=== PATIENT | female | born 1975 | race Two or more races ===

== ENCOUNTER 2018-06-02 22:32 | Observation (INO) | payer OTHER ==
--- NOTE | 2018-06-02 23:36 | EDPHY ---
H & P Stated Complaint: mid chest pain with rib and back pain for 2 week Time Seen by Provider: 06/02/18 23:36 HPI/ROS: HPI CHIEF COMPLAINT: Chest pain and abdominal pain. HISTORY OF PRESENT ILLNESS: This patient is a 42-year-old female, predominantly Finnish-speaking, however daughter at bedside speaks fluent Finnish and Serbian, she presents emergency room chest pain and abdominal pain the chest pain is substernal, abdominal pain epigastric. States she has basically had this for 2 weeks constantly. It has gotten worse tonight. No pleuritic pain. Describes achy sensation. Past Medical History: Significant medical history for hypertension, prediabetes Past Surgical History: No recent surgical history Social History: Denies daily use of drugs alcohol tobacco. Family History: Noncontributory ROS REVIEW OF SYSTEMS: 10 Systems were reviewed and negative with the exception of the elements mentioned in the history of present illness. Exam Constitutional triage nursing summary reviewed, vital signs reviewed, awake/ alert. Eyes normal conjunctivae and sclera, EOMI, PERRLA. HENT normal inspection, atraumatic, moist mucus membranes, no epistaxis, neck supple/ no meningismus, no raccoon eyes. Respiratory clear to auscultation bilaterally, normal breath sounds, no respiratory distress, no wheezing. Cardiovascular rate normal, regular rhythm, no murmur, no edema, distal pulses normal. Gastrointestinal soft, non-tender, no rebound, no guarding, normal bowel sounds, no distension, no pulsatile mass. Genitourinary no CVA tenderness. Musculoskeletal no midline vertebral tenderness, full range of motion, no calf swelling, no tenderness of extremities, no meningismus, good pulses, neurovascularly intact. Skin pink, warm, & dry, no rash, skin atraumatic. Neurologic awake, alert and oriented x 3, AAOx3, moves all 4 extremities equally, motor intact, sensory intact, CN II-XII intact, normal cerebellar, normal vision, normal speech. Psychiatric normal mood/affect. Heme/Lymph/Immune no lymphadenopathy. Differential Diagnosis: Differential diagnosis includes but is not limited to: ACS, atypical chest pain, pneumothorax, pneumonia, pulmonary embolism, aortic dissection, congestive heart failure, tumor, musculoskeletal pain, esophageal pain, GERD, peptic ulcer disease, pancreatitis Medical Decision Making: Plan for this patient IV establishment IV fluid bolus , hall monitor, EKG, troponin, rule out acute coronary syndrome, GI cocktail. Chest x-ray re-evaluate Re-evaluation: EKG interpretation by me on record in [email or web address] system. Impression time of EKG 225, sinus rhythm: 86, no ST-elevation borderline T-wave abnormalities V1 V2. Troponin 0.00 ED x-ray chest one view negative for acute cardiopulmonary disease. Re-evaluation 4:32 a.m.: Patient continues to complain of left-sided chest pain it did go away briefly. Full-dose aspirin given. Will repeat her EKG. 4:41 a.m. patient continues have left-sided chest pain full-dose aspirin as been ordered nitroglycerin as been ordered. Repeat EKG. Plan for admission to the hospitalist service Dr. Lerma agrees to admit. EKG interpretation by me on record in [facility] [employer] [facility] system. Impression time of EKG this is a repeat EKG 4:45 a.m. Sinus rhythm rate of 69, T-wave abnormality V1 V2. Nonspecific. No ST elevation. Source: Patient - Personal History LMP (Females 10-55): Unknown Current Tetanus/Diphtheria Vaccine: Yes Current Tetanus Diphtheria and Acellular Pertussis (TDAP): Yes - Medical/Surgical History Hx Asthma: No Hx Chronic Respiratory Disease: No Hx Diabetes: Yes Hx Cardiac Disease: No Hx Renal Disease: No Hx Cirrhosis: No Hx Alcoholism: No Hx HIV/AIDS: No Hx Splenectomy or Spleen Trauma: No Other PMH: tubal,appy, , DM, and HTN - Social History Smoking Status: Never smoked Constitutional: Initial Vital Signs Temperature (C) 37.0 C 06/02/18 22:34 Heart Rate 91 06/02/18 22:34 Respiratory Rate 16 06/02/18 22:34 Blood Pressure 176/100 H 06/02/18 22:34 O2 Sat (%) 95 06/02/18 22:34 O2 Delivery Mode Room Air Allergies/Adverse Reactions: anesthesia Allergy (Uncoded 06/02/18 22:39) Home Medications: Medication Instructions Recorded Cyclobenzaprine [Flexeril 10 MG 5 - 10 mg PO TID PRN 06/02/18 (*)] Meloxicam 15 mg PO DAILY 06/02/18 Medical Decision Making - Data Points Laboratory Results: Laboratory Results 06/02/18 23:33 06/02/18 23:33 Medications Given: Discontinued Medications Al Hydroxide/Mg Hydroxide (Maalox Susp) 30 ml PO ONCE ONE Stop: 06/02/18 23:42 Last Admin: 06/02/18 23:46 Dose: 30 ml Hyoscyamine Sulfate (Levsin, Hyomax-Sl) 0.25 mg PO ONCE ONE Stop: 06/02/18 23:42 Last Admin: 06/02/18 23:46 Dose: 0.25 mg Sodium Chloride (Ns) 1,000 mls @ 0 mls/hr IV EDNOW ONE; Wide Open PRN Reason: Protocol Stop: 06/02/18 23:42 Last Admin: 06/02/18 23:46 Dose: 1,000 mls Sodium Chloride (Ns) 1,000 mls @ 75 mls/hr IV CONT BLANE Stop: 06/03/18 18:04 Last Admin: 06/03/18 06:29 Dose: 1,000 mls Lidocaine (Lidocaine 2% Viscous) 15 ml PO ONCE ONE Stop: 06/02/18 23:42 Last Admin: 06/02/18 23:46 Dose: 15 ml Nitroglycerin (Nitrostat) 0.4 mg SL EDNOW ONE Stop: 06/03/18 04:41 Last Admin: 06/03/18 04:46 Dose: 0.4 mg Point of Care Test Results: Chemistry 06/02/18 06/02/18 23:41 23:38 POC Sodium 142 mEq/L mEq/L (135-145) POC Potassium 3.3 mEq/L mEq/L (3.3-5.0) POC Chloride 103 mEq/L mEq/L (97-110) POC Total CO2 24 mEq/L mEq/L (22-31) POC BUN 20 mg/dL mg/dL (7-23) POC Creatinine 0.8 mg/dL mg/dL (0.6-1.0) POC Glucose 109 mg/dL H mg/dL (70-100) POC Troponin I 0.00 ng/mL ng/mL (0.00-0.08) ISTAT H&H 06/02/18 23:41 POC Hgb 15.0 gm/dL gm/dL (12.6-16.3) POC Hct 44 % % (38-47) Departure - Departure Disposition: [facility] Inpatient Acute Clinical Impression: Chest pain Qualifiers: Chest pain type: unspecified Qualified Code(s): R07.9 - Chest pain, unspecified Condition: Fair
[2018-06-02] MEDS ORDERED: HYOSCYAMINE SULFATE 0.125 MG TAB PO ONE (23:41)
[2018-06-02] MEDS ORDERED: MAG HYDROX/AL HYDROX/SIMETH 30 ML UDCUP PO ONE (23:41)
[2018-06-02] MEDS ORDERED: LIDOCAINE 2% VISCOUS 15 ML UDCUP PO ONE (23:41)
[2018-06-02] MEDS ORDERED: NS 1,000 ML IV ONE (23:41)
[2018-06-02 23:42] LABS: PLATELET COUNT 195 10^3/uL (150-400)
[2018-06-03 00:04] LABS: INR 0.93 (0.83-1.16); PROTIME(PATIENT) 12.1 SEC (12.0-15.0)
[2018-06-03] MEDS ORDERED: NITROGLYCERIN 0.4 MG BTL SL ONE (04:40)
[2018-06-03] MEDS ORDERED: HYDROCODONE/APAP 5/325 TAB PO PRN (04:41)
[2018-06-03] MEDS ORDERED: ONDANSETRON DISINTEGRATING 4 MG TAB PO PRN (04:41)
[2018-06-03] MEDS ORDERED: LORazepam 2 MG/ML INJ IVP PRN (04:41)
[2018-06-03] MEDS ORDERED: ACETAMINOPHEN 325 MG TAB PO PRN (04:41)
[2018-06-03] MEDS ORDERED: ONDANSETRON 4 MG/2 ML VIAL IVP PRN (04:41)
[2018-06-03] MEDS ORDERED: NS 1,000 ML IV SCH (04:45)
[2018-06-03] MEDS ORDERED: NITROGLYCERIN 0.4 MG BTL SL PRN (04:45)
--- NOTE | 2018-06-03 09:23 | GHP ---
[f rep st] HISTORY AND PHYSICAL DATE OF ADMISSION: 06/03/2018 PRIMARY CARE PHYSICIAN: Unlisted. SOURCE: The patient provides history, appears reliable. I am able to complete majority of the inter view in [place]ian; however, her daughter is at bedside and supplements translation per patient preferen ce. A auto claims adjuster was offered. The patient requested her daughter translate. EMR was reviewed and c alfredo discussed with the ED provider. CHIEF COMPLAINT: Chest pain. HISTORY OF PRESENT ILLNESS: This is a pleasant 42-year-old female with past medical history signific ant for hypertension, prediabetes, who presents to the emergency department with worsening constant c hest pain. Patient's symptoms originally started 2 weeks ago. The patient describes her symptoms as pressure, substernal, without any radiation. She denies any shortness of breath, diaphoresis, no na usea or vomiting associated with it. She denies any pain down her arm, neck or jaw. Patient without any complaints of dyspnea, no lower extremity edema, no PND. No family history of cardiac disease. In the ED, patient was given a GI cocktail as there was concern that this could be GI, related to ref lux. She reports that the GI cocktail did not make any change to her symptoms. She was subsequently given a dose of aspirin and nitroglycerin. The patient reports that her pain steadily improved, and although still present, is much better than when she came into the ER. REVIEW OF SYSTEMS: Ten systems reviewed, negative except as noted above, except for patient now with complaint of a headache following administration nitroglycerin. ALLERGIES: Anesthesia. PAST MEDICAL HISTORY: Significant for hypertension, prediabetes for which the patient is not current ly receiving any medications for. She does have some musculoskeletal issues for which she is on Guan xicam and cyclobenzaprine. PAST SURGICAL HISTORY: Significant for BTL, , appendectomy. FAMILY HISTORY: Negative for CAD. SOCIAL HISTORY: Patient is . She lives with her family. She does not smoke or utilize any i llicit drugs. Occasional alcohol. CODE STATUS: Full. PHYSICAL EXAMINATION: VITAL SIGNS: Upon arrival to the ED, blood pressure is 176/100, heart rate 91 , respiratory rate 16, O2 sat 95% on room air, temperature 37.0. Current vitals available: Blood pr essure 143/93, heart rate 87, respiratory rate 17, O2 sat 97% on room air with a temperature of 36.8. GENERAL: No acute distress, very pleasant, obese female, who is lying quietly in bed, does appear slightly uncomfortable, complaining of headache. Daughter is at bedside. HEAD: Normocephalic/atrau matic. EYES: Extraocular muscles are intact. Pupils are equal, round, slightly decreased reactivit y to light bilaterally, but symmetric. No scleral icterus or conjunctival injection. ENT: Mucous m embranes appear moist. No oropharyngeal erythema or exudate. NECK: Supple, trachea midline. CARDI OVASCULAR: Regular rate and rhythm. No murmurs, rubs or gallops appreciated. RESPIRATORY: Lungs c lear to auscultation bilaterally. No wheezes, rales or rhonchi appreciated. ABDOMEN: Obese, soft, nontender to palpation. No rebound, guarding or masses appreciated. : No supraclavicular tendern ess to palpation. Miller catheter in place. EXTREMITIES: No cyanosis, clubbing or edema appreciated . 2+ pedal pulses bilaterally and symmetric. NEUROLOGIC: Grossly nonfocal. No facial drooping. M oves all extremities. Sits up independently. PSYCH: Patient is pleasant and cooperative. Thought process, content and questions appropriate. LABORATORY STUDIES: WBCs 5.60, H and H 14.8 and 42.5, MCV 81.4, platelet count 195, no bands. Neutr ophil percent normal. PT 12.1, INR 0.93, PTT 26.3. Sodium 136, potassium 3.7, chloride 102, CO2 23, anion gap 11, BUN 20, creatinine 0.8, GFR greater th an 60, glucose 113, calcium 9.4, magnesium 1.8, total bili 0.4, conjugated 0.4, ALT 45, AST 29, alk p hos 64. Troponin x2 is negative. BTNP 39. Total protein 8.2, albumin 4.7, lipase 145. EKG: Normal sinus rhythm in the 80s. Patient with T-wave inversions in V1, V2 and flattening in V3. No comparison EKG is available. QT is 476. Repeat EKG appears similar with a little bit more prom inence in T-wave inversion in V2, otherwise unchanged. Chest x-ray: Image reviewed by myself, report is still pending, appears grossly normal, no consolida tion, effusion, no cardiomegaly, slight prominence in the pulmonary vasculature. ASSESSMENT/PLAN: Very pleasant 42-year-old female with past medical history significant for untreate d hypertension, prediabetes, who presents to the emergency department with complaints of 2 weeks prog ressively worsening substernal chest pain. 1. Chest pain. Differential diagnosis with lower suspicion for acute coronary syndrome. The patien t's HEART score is 3 with more than 3 risk factors and nonspecific T-wave changes on EKG. It is uncl ear if these are chronic as there are no comparison EKGs available. The patient was attempted on cecilio e anti-inflammatories and muscle relaxers without any improvement in her symptoms. Lower suspicion f or pulmonary embolus, the patient is not hypoxic and not tachycardic. Given her multiple risk factor s, elevated score, we will anticipate the patient will undergo a treadmill stress test with Nuclear M kimmyicine given the nonspecific EKG changes. She has been made n.p.o. The patient reports that she di d have some improvement in her symptoms following nitroglycerin. This is available p.r.n. She does have a post nitroglycerin headache and is a bit more uncomfortable related to this. Declines any Tyl enol. Lipid panel. 2. History of prediabetes. Blood sugars this morning were just minimally elevated. We will add on an A1c. 3. Benign essential hypertension. Patient without any medications listed. Her blood pressures have been slightly elevated. She does appear a little bit anxious. Currently, blood pressure is 143/93. We will proceed with stress testing and then consider discharge with antihypertensive agents. 4. Obesity, body mass index 34.3. Lifestyle modifications, dietary changes will be recommended at d ischarge. 5. Fluids, electrolytes and nutrition. The patient will be n.p.o. Placed on 1 L of normal saline x 1 overnight while on the floor. Electrolytes adequate, replace if needed. 6. Prophylaxis. Sequential compression devices. Holding anticoagulation. 7. Code status. Full. 8. Disposition. Patient admitted to observation status on PCU floor for close cardiac monitoring pe nding stress test. /[id number]/MODL
[2018-06-03 11:09] VITALS: BP 131/82
[2018-06-03] MEDS ORDERED: CYCLOBENZAPRINE 10 MG TAB PO PRN (11:54)
[2018-06-03] MEDS ORDERED: REGADENOSON 0.4 MG/5 ML SYR IVP ONE (12:45)
--- NOTE | 2018-06-03 13:06 | PDCARST ---
CAR Stress Test Results Type of Stress Test: Nuclear TM stress test Indication: cp Description of Procedure: After informed consent was obtained, pt was exercised according to [facility] Protocol. Monitoring was performed with standard stress furnace combustion tester electrode placement. Vital signs were monitored according to protocol throughout the procedure. STRESS EKG AND HEMODYNAMIC DATA. Exercise time: 6 min. This is equivalent to: 6.9 METS. Resting heart rate: 109 bpm. Resting blood pressure: 156/96 mmHg. Resting O2 saturation: 95 %. Peak heart rate: 157 bpm. This is 87 % of age predicted maximum heart rate response. Peak blood pressure: 182/94 mmHg. Exercise O2: 94%. Arrhythmias : 1 PVC couplet in recovery. Reason for termination: The test was stopped due to fatigue . Symptoms: The patient experienced no typical symptoms of angina during stress or recovery. STRESS TEST ANALYSIS. Baseline ECG: SR. Stress ECG : sinus tach. No exercise induced ischemic ECG changes. Rhythm: 1 PVC couplet in recovery. Blood pressure: Resting htn with normal blood pressure response to exercise. Exercise tolerance: The patient has low average exercise tolerance adjusted for age and gender. Symptoms: No exercise induced symptoms. Impression: Stress ECG is negative for ischemia. The Fernandez Treadmill Score is + 6 consistent with low cardiovascular risk (<1% annual mortality). Conclusion: Await nuclear images.
--- NOTE | 2018-06-03 15:21 | ASDISCHSUM ---
Discharge Information Plan Status:Home with No Needs Medically Cleared to Leave:06/03/2018 Discharge Date:06/03/2018 CM D/C Disposition:Home, Routine, Self-Care ADT D/C Disposition: Projected Discharge Date:06/03/2018 Transportation at D/C:Family Discharge Delay Reason: Follow-Up Date:06/03/2018 Discharge Slot: Final Diagnosis: Placement Information Patient Contact Information Contact Name:SHARATH Relationship: Address:[address] City:[place] Alternate Phone: State/Zip Code:[place] [address] Email: Financial Information Financial Class:Self-Pay Primary Plan Desc:WE CARE Primary Plan Number:99 Secondary Plan Desc: Secondary Plan Number: Assessment Information LACE LACE Length of stay for Answers: Less than 1 day current admission Acuity / Level of Answers: No Care: Did the patient have an inpatient admission? Comorbidities - select Answers: Diabetes (uncontrolled or all that apply controlled) Other Notes: HTN # of Emergency department Answers: 1-2 visits in the last 6 months Score: 3 Date Signed: 06/03/2018 03:20 PM Electronically Signed By:Richa Holden Case Management Discharge Plan Note Case Management Discharge Discharge Order Complete? Answers: Yes Patient to Obtain Answers: Independently Medications Discharge Comments Notes: Discussed with RN. Per RN pt discharge without needs. Pt discharging independent with followup as directed. No further CM needs identified. Date Signed: 06/03/2018 03:19 PM Electronically Signed By:Richa Holden Intervention Information
--- NOTE | 2018-06-03 16:34 | PDDCSUM ---
Discharge Summary Discharge Summary: Date of Admission: 06/02/2018 Date of Discharge: 06/04/2018 Procedures: MPS Followup: PCP Hospital Course Problem List: 1. Chest Pain - Presented with 2 weeks intermittent R sided chest/epigastric pain - W/u included EKG with nonspecific TW changes in V1-2, negative troponins, negative MPS - Pt believes pain may be musculoskeletal from way she has been sleeping on R side - Patient to f/u with PCP to review hospitalization 2. Prediabetes - BG well controlled on admission 3. HTN - BP slightly elevated on admission - Would f/u with PCP to perform ambulatory BP monitoring, addition of antihypertensive agent if indicated 4. Obesity - BMI 34.3, life style modifications recommended Time spent on discharge was >35 minutes with >50% of time spent on patient education and counseling.
--- NOTE | 2018-06-04 07:46 | CPEKG ---
Test Reason : OPEN Blood Pressure : / mmHG Vent. Rate : 069 BPM Atrial Rate : 068 BPM P-R Int : 166 ms QRS Dur : 090 ms QT Int : 435 ms P-R-T Axes : 016 017 008 degrees QTc Int : 466 ms Sinus rhythm Confirmed by Chaz Ignacio ([id number]) on 06/04/2018 7:45:57 AM Referred By: Chaz Ignacio Confirmed By:Chaz Ignacio
--- NOTE | 2018-06-04 07:47 | CPEKG ---
Test Reason : OPEN Blood Pressure : / mmHG Vent. Rate : 086 BPM Atrial Rate : 086 BPM P-R Int : 159 ms QRS Dur : 091 ms QT Int : 398 ms P-R-T Axes : 025 018 008 degrees QTc Int : 476 ms Sinus rhythm Borderline T abnormalities, anterior leads Confirmed by Chaz Ignacio ([id number]) on 06/04/2018 7:45:58 AM Referred By: PHYSICIAN ED Confirmed By:Chaz Ignacio
[2018-06-04] MEDS ORDERED: Meloxicam [Meloxicam] 15 MG PO SCH (09:00)
== END 2018-06-03 15:28 | disposition home or self-care (01) ==
LOC: F2W 06-03 05:55
PROVIDERS: ADMIT Family Medicine; ATTEND Internal Medicine
DX: R07.89 Other chest pain (principal); R73.03 Prediabetes; I10 Essential (primary) hypertension; E66.9 Obesity, unspecified; Z68.34 Body mass index [BMI] 34.0-34.9, adult
CPT/HCPCS: 82435-PO; 82565-PO; 82947-PO; 84132-PO; 84295-PO; 84484-ER; 84520-PO; 85014-ER; A9500; G0378; J2785